=== PATIENT | female | born 1970 | race Caucasian/White ===

== ENCOUNTER 2016-11-30 02:10 | Emergency (ER) | payer MEDICAID ==
[~2016-11-30] VITALS: Wt 55.0 kg
[2016-11-30 04:28] LABS: BASOPHIL # 0.1 10^3/ul (0.0-0.1); BASOPHILS % 0.6 % (0.0-2.0); EOSINOPHILS # 0.2 10^3/ul (0.0-0.5); EOSINOPHILS % 1.8 % (0.0-7.0); HEMATOCRIT 35.9 % (37.0-47.0); LYMPHOCYTES # 2.3 10^3/ul (0.8-2.9); LYMPHOCYTES % 28.6 % (15.0-51.0); MEAN CORPUSCULAR HEMOGLOBIN 29.1 pg (29.0-33.0); MEAN CORPUSCULAR HGB CONC 33.4 g/dl (32.0-37.0); MEAN CORPUSCULAR VOLUME 87.1 fl (82.0-101.0); MEAN PLATELET VOLUME 10.1 fl (7.4-10.4); MONOCYTE # 0.5 10^3/ul (0.3-0.9); MONOCYTES % 5.8 % (0.0-11.0); NEUTROPHIL # 5.1 10^3/ul (1.6-7.5); NEUTROPHILS % 62.8 % (39.0-77.0); PLATELET COUNT 336 10^3/UL (140-415); RED BLOOD COUNT 4.12 10^6/ul (4.20-5.40); RED CELL DISTRIBUTION WIDTH 14.6 % (11.5-14.5); WHITE BLOOD COUNT 8.1 10^3/ul (4.8-10.8)
[2016-11-30 04:43] LABS: INR 0.85; PARTIAL THROMBOPLASTIN TIME 26.7 Sec (25.0-35.0); PROTIME 11.6 Sec (12.2-14.2); PT RATIO 0.9
[2016-11-30 04:51] LABS: ANION GAP 21 (8-16); BLOOD UREA NITROGEN 12 mg/dl (7-20); CALCIUM 9.4 mg/dl (8.4-10.2); CARBON DIOXIDE 24 mmol/L (21-31); CHLORIDE 104 mmol/L (97-110); CREATININE 0.82 mg/dl (0.44-1.00); GLUCOSE 108 mg/dl (70-220); POTASSIUM 3.8 mmol/L (3.5-5.1); SODIUM 145 mmol/L (135-144)
[2016-11-30] MEDS ORDERED: FAMOTIDINE 20 MG TAB PO ONE (05:00)
[2016-11-30 05:01] LABS: D-DIMER 350.77 ng/ml (<460)
[2016-11-30 05:06] LABS: TROPONIN-I < 0.012 ng/ml (0.00-0.12)
[2016-11-30] MEDS ORDERED: METO-429 PO (05:14)
[2016-11-30] MEDS ORDERED: FER325 PO (05:14)
[2016-11-30] MEDS ORDERED: OMEP20CA16 PO (05:14)
[2016-11-30] MEDS ORDERED: LACT1CAP17 PO (05:14)
[2016-11-30] MEDS ORDERED: FAMO-96 PO (05:21)
--- NOTE | 2016-11-30 05:31 | ERD ---
ER Documentation Chief Complaint Date/Time DATE: 11/30/16 TIME: 05:22 Chief Complaint Chest tightness and SOB HPI 45-year-old female with a history of hypertension presenting with acute onset chest pain and choking while she was asleep. She states that she woke up with the feeling of choking. She had associated substernal chest pain with associated shortness of breath. Her symptoms lasted about 30 minutes and resolved prior to arrival. She denies any associated nausea, vomiting, fever, chills. At this time she has no pain. She also denies any abdominal pain. She does endorse a history of acid reflux and she has been taking omeprazole, however she feels like it is not helping. ROS All systems reviewed and are negative except as per history of present illness. Medications Home Meds Active Scripts Famotidine* (Pepcid*) 20 Mg Tablet, 20 MG PO BID for 14 Days, TAB Prov:NURYS SANCHES MD 11/30/16 Reported Medications Lactobac Cmb #3/Fos/Pantethine (PROBIOTIC & ACIDOPHILUS CAP) 1 Each Capsule, 1 EACH PO, CAP 11/30/16 Ferrous Sulfate* (Ferrous Sulfate*) 325 Mg Tabec, 325 MG PO DAILY, TAB 11/30/16 Omeprazole* (Omeprazole*) 20 Mg Capsule.dr, 20 MG PO DAILY, #30 CAP 11/30/16 Metoprolol Tartrate* (Lopressor*) 50 Mg Tab, 50 MG PO BID, #60 TAB 11/30/16 Allergies Allergies: Coded Allergies: No Known Allergy (Unverified , 11/30/16) PMhx/Soc Hx Cardiac Disorders: Yes (Hypertension) Hx Miscellaneous Medical Probl: Yes (Acid reflux) Hx Alcohol Use: No Hx Substance Use: No Hx Tobacco Use: No Smoking Status: Never smoker FmHx Family History: other (Hypertension), No diabetes Physical Exam Vitals Vital Signs Date Time Temp Pulse Resp B/P Pulse Ox O2 Delivery O2 Flow Rate FiO2 11/30/16 02:23 98.6 68 20 170/77 100 Physical Exam Const: No apparent distress, well appearing, not diaphoretic Head: Atraumatic Eyes: Normal Conjunctiva ENT: Normal External Ears, Nose and Mouth. Oropharynx normal Neck: Full range of motion..~ No meningismus. Resp: Clear to auscultation bilaterally Cardio: Regular rate and rhythm, no murmurs. 2+ distal pulses in all 4 extremities Abd: Soft, non tender, non distended. Normal bowel sounds Skin: No petechiae or rashes Back: No midline or flank tenderness Ext: No cyanosis, or edema. No calf tenderness to palpation. Negative Homans sign Neur: Awake and alert Psych: Normal Mood and Affect Result Diagram: 11/30/16 0400 11/30/16 0400 Results 24 hrs Laboratory Tests Test 11/30/16 04:00 White Blood Count 8.110^3/ul Red Blood Count 4.1210^6/ul Hemoglobin 12.0g/dl Hematocrit 35.9% Mean Corpuscular Volume 87.1fl Mean Corpuscular Hemoglobin 29.1pg Mean Corpuscular Hemoglobin Concent 33.4g/dl Red Cell Distribution Width 14.6% Platelet Count 41350^3/UL Mean Platelet Volume 10.1fl Neutrophils % 62.8% Lymphocytes % 28.6% Monocytes % 5.8% Eosinophils % 1.8% Basophils % 0.6% Nucleated Red Blood Cells % 0.0/100WBC Neutrophils # 5.110^3/ul Lymphocytes # 2.310^3/ul Monocytes # 0.510^3/ul Eosinophils # 0.210^3/ul Basophils # 0.110^3/ul Nucleated Red Blood Cells # 0.010^3/ul Prothrombin Time 11.6Sec Prothrombin Time Ratio 0.9 INR International Normalized Ratio 0.85 Activated Partial Thromboplast Time 26.7Sec D-Dimer 350.77ng/ml D-Dimer Comment Sodium Level 145mmol/L Potassium Level 3.8mmol/L Chloride Level 104mmol/L Carbon Dioxide Level 24mmol/L Anion Gap 21 Blood Urea Nitrogen 12mg/dl Creatinine 0.82mg/dl Glucose Level 108mg/dl Calcium Level 9.4mg/dl Troponin I < 0.012ng/ml Current Medications Medications (Trade) Dose Ordered Sig/Alexys Route PRN Reason Start Time Stop Time Status Last Admin Dose Admin Famotidine (Pepcid) 40 mg ONCE ONCE PO 11/30/16 05:00 11/30/16 05:01 DC Procedures/MDM EMERGENT LABS AND DIAGNOSTIC STUDIES: Lab Results above were reviewed and interpreted by me. CBC: no anemia or evidence of infection CMP: No evidence of electrolyte abnormality, renal failure, hypoglycemia, liver failure, or biliary obstruction Troponin within normal limits D-dimer within normal limits 12-lead EKG was interpreted by Michelle Sanches MD: Normal Sinus Rhythm Normal axis Normal intervals No acute ST or T wave changes suggestive of acute ischemia or STEMI. Radiology Results as interpreted by Radiology below were reviewed by Agustín Sanches MD: Chest X-ray 1V Interpreted by me: Soft Tissue: No acute abnormalities Bones: No acute abnormalities Mediastinum/Cardiac Silhouette/Lungs: No acute abnormalities Initial Nursing notes reviewed. Previous Medical Records requested via the Electronic Health Record. EMERGENCY DEPARTMENT COURSE / MEDICAL DECISION MAKING: The patient presents with chest pain. Vitals are stable. I considered pulmonary embolism, aortic dissection, pneumothorax among other diagnoses. D-dimer was negative. Chest x-ray showed no acute abnormalities. Based on her symptoms, I suspect her symptoms were likely secondary to acid reflux with laryngospasm. Evaluation for acute coronary syndrome was performed. The HEART score was utilized for risk stratification and found to be < 3. Repeat EKG and troponin @ 3 hours were recommended, however the patient would like to go home without repeat troponin after shared decision making. Decision has been made to discharge the patient for outpatient evaluation. Patient instructed to arrange follow up with PCP in the next 2 days and to discuss possibility of GI referral for endoscopy. A prescription for Pepcid was given. Patient agrees to return for any worsening symptoms Patient's blood pressure was elevated (>120/80) but appears stable without evidence of hypertensive emergency or urgency. The patient was counseled about the risks of hypertension and urged to pursue outpatient monitoring and therapy within a week with their primary care physician. Departure Diagnosis: Primary Impression: Chest pain Chest pain type: unspecified Qualified Code: R07.9 - Chest pain, unspecified type Additional Impression: Acid reflux Esophagitis presence: esophagitis presence not specified Qualified Code: K21.9 - Gastroesophageal reflux disease, esophagitis presence not specified Condition: Stable Patient Instructions: Tips to Control Acid Reflux, Chest Pain, Uncertain Cause Referrals: Primary Care doctor Additional Instructions: Return to the ER for any worsening symptoms. Follow-up with your doctor to discuss a referral to GI for possible endoscopy. NURYS SANCHES MD Nov 30, 2016 05:31
[2016-11-30 06:01] VITALS: BP 126/82; PULSE 78; RESP 19; TEMP 98.5
--- NOTE | 2016-11-30 06:26 | RADRPT ---
PROCEDURE: CHEST - 1 VIEW CLINICAL INDICATION: 45-year-old female with chest pain. TECHNIQUE: A single frontal AP upright portable view of the chest was performed. The images were reviewed on a PACS workstation. COMPARISON: None. FINDINGS: The cardiomediastinal silhouette has a normal appearance. There is no evidence for an infiltrate. There is no evidence for congestive heart failure. There is no evidence for pneumothorax. The osseou s structures are intact. IMPRESSION: No evidence for active cardiopulmonary disease. .Denadre Freeman MD, MD Date Time Electronically viewed and signed by .Deandre Freeman MD, on 11/30/2016 06:26 .M/
== END 2016-11-30 06:04 | disposition home or self-care (01) ==
LOC: E/R 02:10
DX: R07.89 Other chest pain (principal); K21.9 Gastro-esophageal reflux disease without esophagitis; I10 Essential (primary) hypertension
CPT/HCPCS: 36415; 71010; 80048; 84484; 85025; 85378; 85610; 85730; 93005; Z7502; Z7610

== ENCOUNTER 2017-03-24 13:24 | Emergency (ER) | payer MEDICAID ==
[~2017-03-24] VITALS: Ht 147.3 cm; Wt 54.2 kg
[~2017-03-24 13:24] MED LIST: FAMO-96 PO; FER325 PO; LACT1CAP17 PO; METO-429 PO; OMEP20CA16 PO
[2017-03-24 13:28] VITALS: Ht 147.3 cm; Wt 54.2 kg
[2017-03-24 15:19] LABS: BASOPHILS % 0.4 % (0.0-2.0); EOSINOPHILS # 0.2 10^3/ul (0.0-0.5); EOSINOPHILS % 2.4 % (0.0-7.0); HEMATOCRIT 34.5 % (37.0-47.0); LYMPHOCYTES # 2.2 10^3/ul (0.8-2.9); LYMPHOCYTES % 24.8 % (15.0-51.0); MEAN CORPUSCULAR HEMOGLOBIN 28.1 pg (29.0-33.0); MEAN CORPUSCULAR HGB CONC 31.9 g/dl (32.0-37.0); MEAN PLATELET VOLUME 9.9 fl (7.4-10.4); MONOCYTE # 0.4 10^3/ul (0.3-0.9); MONOCYTES % 4.3 % (0.0-11.0); NEUTROPHIL # 6.1 10^3/ul (1.6-7.5); NEUTROPHILS % 67.9 % (39.0-77.0); PLATELET COUNT 383 10^3/UL (140-415); RED BLOOD COUNT 3.92 10^6/ul (4.20-5.40); RED CELL DISTRIBUTION WIDTH 13.7 % (11.5-14.5)
[2017-03-24 15:39] LABS: ALANINE AMINOTRANSFERASE 20 IU/L (13-69); ALBUMIN 4.4 g/dl (3.3-4.9); ALBUMIN/GLOBULIN RATIO 1.25; ALKALINE PHOSPHATASE 71 IU/L (42-121); ANION GAP 14 (8-16); ASPARTATE AMINO TRANSFERASE 19 IU/L (15-46); BILIRUBIN,INDIRECT 0.2 mg/dl (0-1.1); BILIRUBIN,TOTAL 0.2 mg/dl (0.2-1.3); BLOOD UREA NITROGEN 8 mg/dl (7-20); CALCIUM 9.4 mg/dl (8.4-10.2); CARBON DIOXIDE 26 mmol/L (21-31); CHLORIDE 106 mmol/L (97-110); CREATININE 0.77 mg/dl (0.44-1.00); GLUCOSE 102 mg/dl (70-220); POTASSIUM 3.5 mmol/L (3.5-5.1); SODIUM 142 mmol/L (135-144); TOTAL PROTEIN 7.9 g/dl (6.1-8.1)
[2017-03-24 16:02] LABS: TROPONIN-I < 0.012 ng/ml (0.00-0.12)
--- NOTE | 2017-03-24 16:03 | RADRPT ---
PROCEDURE: XR Chest. CLINICAL INDICATION: Chest Pain. TECHNIQUE: Single frontal view of the chest was obtained COMPARISON: None FINDINGS: The heart and mediastinum are within normal limits. The lungs are clear. There is no pleural effusion or pneumothorax. The bones and soft tissue show no acute change. IMPRESSION: No definite abnormalities are identified. RPTAT:AAJJ Richard Crooks Physician Date Time Electronically viewed and signed by Richard Crooks Physician on 03/24/2017 16:03 /
--- NOTE | 2017-03-24 16:17 | ERD ---
ER Documentation Chief Complaint Chief Complaint SOB and dizziness x this am HPI This patient is a 46-year-old who has a history of only hypertension complaining of chest pressure that she has had for 1 week. She states however it has gotten worse starting yesterday. She denies any palpitations. She states at this time she does not have any pain but she had pain earlier today that was associated with dizziness. Nor does she have dizziness right now. She states the pain comes and goes and there are no alleviating or exacerbating factors. She denies any nausea or vomiting. No coughing. No alcohol drinking or smoking. ROS All systems reviewed and are negative except as per history of present illness. Medications Home Meds Active Scripts Famotidine* (Pepcid*) 20 Mg Tablet, 20 MG PO BID for 14 Days, TAB Prov:NURYS WOODY MD 11/30/16 Reported Medications Lactobac Cmb #3/Fos/Pantethine (PROBIOTIC & ACIDOPHILUS CAP) 1 Each Capsule, 1 EACH PO, CAP 11/30/16 Ferrous Sulfate* (Ferrous Sulfate*) 325 Mg Tabec, 325 MG PO DAILY, TAB 11/30/16 Omeprazole* (Omeprazole*) 20 Mg Capsule.dr, 20 MG PO DAILY, #30 CAP 11/30/16 Metoprolol Tartrate* (Lopressor*) 50 Mg Tab, 50 MG PO BID, #60 TAB 11/30/16 Allergies Allergies: Coded Allergies: No Known Allergy (Unverified , 03/24/17) PMhx/Soc Medical and Surgical Hx: pt denies Surgical Hx Hx Cardiac Disorders: Yes (Hypertension) Hx Miscellaneous Medical Probl: Yes (Acid reflux) Hx Alcohol Use: No Hx Substance Use: No Hx Tobacco Use: No FmHx Family History: No diabetes Physical Exam Vitals Vital Signs Date Time Temp Pulse Resp B/P Pulse Ox O2 Delivery O2 Flow Rate FiO2 03/24/17 13:28 98.8 68 20 175/75 100 Physical Exam Const: [] Head: Atraumatic Eyes: Normal Conjunctiva ENT: Normal External Ears, Nose and Mouth. Neck: Full range of motion..~ No meningismus. Resp: Clear to auscultation bilaterally Cardio: Regular rate and rhythm, no murmurs Abd: Soft, non tender, non distended. Normal bowel sounds Skin: No petechiae or rashes Back: No midline or flank tenderness Ext: No cyanosis, or edema Neur: Awake and alert Psych: Normal Mood and Affect Result Diagram: 03/24/17 1511 03/24/17 1511 Results 24 hrs Laboratory Tests Test 03/24/17 15:11 White Blood Count 9.010^3/ul Red Blood Count 3.9210^6/ul Hemoglobin 11.0g/dl Hematocrit 34.5% Mean Corpuscular Volume 88.0fl Mean Corpuscular Hemoglobin 28.1pg Mean Corpuscular Hemoglobin Concent 31.9g/dl Red Cell Distribution Width 13.7% Platelet Count 36079^3/UL Mean Platelet Volume 9.9fl Neutrophils % 67.9% Lymphocytes % 24.8% Monocytes % 4.3% Eosinophils % 2.4% Basophils % 0.4% Nucleated Red Blood Cells % 0.0/100WBC Neutrophils # 6.110^3/ul Lymphocytes # 2.210^3/ul Monocytes # 0.410^3/ul Eosinophils # 0.210^3/ul Basophils # 0.010^3/ul Nucleated Red Blood Cells # 0.010^3/ul Sodium Level 142mmol/L Potassium Level 3.5mmol/L Chloride Level 106mmol/L Carbon Dioxide Level 26mmol/L Anion Gap 14 Blood Urea Nitrogen 8mg/dl Creatinine 0.77mg/dl Glucose Level 102mg/dl Calcium Level 9.4mg/dl Total Bilirubin 0.2mg/dl Direct Bilirubin 0.00mg/dl Indirect Bilirubin 0.2mg/dl Aspartate Amino Transf (AST/SGOT) 19IU/L Alanine Aminotransferase (ALT/SGPT) 20IU/L Alkaline Phosphatase 71IU/L Troponin I < 0.012ng/ml Total Protein 7.9g/dl Albumin 4.4g/dl Globulin 3.50g/dl Albumin/Globulin Ratio 1.25 Procedures/MDM Patient's blood pressure was elevated (>120/80) but appears stable without evidence of hypertension emergency or urgency. The patient was counseled about the risks of hypertension and urged to pursue outpatient monitoring and therapy within a week with their primary care physician. The differential diagnosis includes but is not limited to acute coronary syndrome acute myocardial infarction, pericarditis, pulmonary embolism, aortic dissection, pneumonia, pleural effusion, pneumothorax, GERD, chest wall pain, and others. Symptoms have been going for over 1 week. Her labs including troponin are negative as is her chest x-ray. No clear etiology for her symptoms may be anxiety versus musculoskeletal related. Patient counseled regarding my diagnostic impression and care plan. Prior to discharge all questions answered. Pt agrees with treatment plan and understands strict return precautions. Pt is instructed to follow up with primary care provider within 24- 48 hours. Precautionary instructions provided including instructions to return to the ER if not improving or for any worsening or changing symptoms or concerns. Departure Diagnosis: Primary Impression: Chest pain Condition: Stable Patient Instructions: Chest Pain, Uncertain Cause Additional Instructions: Call your primary care doctor TOMORROW for an appointment during the next 1-2 days.See the doctor sooner or return here if your condition worsens before your appointment time. JOSE SANTIAGO PA-C Mar 24, 2017 16:17
[2017-03-24 16:26] LABS: ADD UMIC YES; UR ASCORBIC ACID NEGATIVE (NEGATIVE); UR BACTERIA FEW /HPF (NONE SEEN); UR BILIRUBIN (Dip) NEGATIVE (NEGATIVE); UR BLOOD (Dip) 3+ mg/dL (NEGATIVE); UR CLARITY CLEAR (CLEAR); UR COLOR STRAW (YELLOW); UR GLUCOSE (Dip) NEGATIVE (NEGATIVE); UR KETONES (Dip) NEGATIVE (NEGATIVE); UR LEUKOCYTE ESTERASE (Dip) TRACE Leu/ul (NEGATIVE); UR NITRITE (Dip) NEGATIVE (NEGATIVE); UR RBC 0 /HPF (0-5); UR SPECIFIC GRAVITY (Dip) 1.002 (1.003-1.030); UR SQUAMOUS EPITHELIAL CELL FEW /HPF (FEW); UR TOTAL PROTEIN (Dip) NEGATIVE (NEGATIVE); UR UROBILINOGEN (Dip) NEGATIVE (NEGATIVE)
== END 2017-03-24 16:55 | disposition home or self-care (01) ==
LOC: FTE 13:24
DX: R07.89 Other chest pain (principal); I10 Essential (primary) hypertension
CPT/HCPCS: 36415; 71010; 80053; 81001; 84484; 85025; 93005; Z7502

== ENCOUNTER 2017-04-25 05:44 | Day surgery (SDC) | END 2017-04-25 13:26 | disposition home or self-care (01) ==

== ENCOUNTER 2017-07-06 09:18 | Emergency (ER) | END 2017-07-06 13:32 | disposition home or self-care (01) ==